=== PATIENT | male | born 2000 | race African-American/Black ===

== ENCOUNTER 2020-12-30 18:41 | Emergency (ER) | payer OTHER ==
[~2020-12-30] VITALS: Ht 175.3 cm; Wt 63.5 kg
[2020-12-30] MEDS ORDERED: HYDROCODON-ACE1 EAC7 PO (21:26)
[2020-12-30 21:32] VITALS: BP 131/76
== END 2020-12-30 21:33 | disposition home or self-care (01) ==
LOC: ER 18:41
DX: S52.125A Nondisplaced fracture of head of left radius, initial encounter for closed fracture (principal); I10 Essential (primary) hypertension; V86.55XA Driver of 3- or 4- wheeled all-terrain vehicle (ATV) injured in nontraffic accident, initial encounter; Y93.I9 Activity, other involving external motion; Y92.488 Other paved roadways as the place of occurrence of the external cause; Y99.8 Other external cause status